=== PATIENT | female | born 1955 | race Caucasian/White ===

== ENCOUNTER 2019-03-17 15:00 | Outpatient (RCR) | payer MEDICARE, OTHER, SELFPAY | END 2019-03-17 16:23 | disposition home or self-care (01) | LOC: PT.CARL 15:00 | PROVIDERS: Visit Provider Orthopaedic Surgery | DX: S82.101A Unspecified fracture of upper end of right tibia, initial encounter for closed fracture (principal) | CPT/HCPCS: 97010; 97014; 97033; 97110; 97112; 97116; 97163; G0283 ==